=== PATIENT | female | born 1970 | race Caucasian/White ===

== ENCOUNTER 2023-07-31 13:06 | Day surgery (SDC) | payer SELFPAY ==
[2023-07-31] VITALS (7 sets, daily range): BP systolic 159–185; BP diastolic 102–116; BMI 40.8
== END 2023-07-31 15:50 | disposition home or self-care (01) ==
LOC: SDS 13:06
PROVIDERS: ATTENDING PHYSICIAN Internal Medicine Gastroenterology
DX: K80.70 Calculus of gallbladder and bile duct without cholecystitis without obstruction (principal)
CPT/HCPCS: 43262; 43264; 74330; 76000; C1769

== ENCOUNTER 2023-09-13 06:12 | Day surgery (SDC) | payer OTHER, SELFPAY ==
[2023-08-23 07:43] VITALS: BMI 38.7
[2023-09-13] VITALS (17 sets, daily range): BP systolic 16–175; BP diastolic 48–101; BMI 38.7; BMI 38.3
[2023-09-13] MEDS: NORMOSOL-R 1000 IV ×2 (06:37→10:29)
[2023-09-13] MEDS: TYLENOL 1000 MG PO (06:37)
--- NOTE | 2023-09-13 09:54 | W.IMMPOSTOP ---
Surgical Immed Post Op Note
-
Primary Surgeon: Flo
Assisting Surgeon: Demian PGY1
Pre-op Diagnosis: Choledocholithiasis
Post-op Diagnosis: Choledocholithiasis
Procedure Performed: Laparoscopic cholecystectomy with IOC
Anesthesia Type: General
Specimen / Cultures:
1. Gallbladder
Estimated Blood Loss: 7 cc
Complications: None
Operative Findings:
1. Chronically inflamed and dilated GB, difficult anatomy with dilated cystic duct and aberrant RIGHT hepatic duct off cystic
2. IOC with filling defect within the CBD, good flow into duodenum
3. Cystic duct taken as low as safely possible without interfering with aberrant branch with TRISTIAN 30 garcia load stapler
GI consult post-operatively. Plan to admit for monitoring and recovery.
[2023-09-13] MEDS: DILAUDID 0.5 MG IV ×2 (10:35→17:35)
[2023-09-13] MEDS: TYLENOL 650 MG PO ×2 (12:07→19:44)
--- NOTE | 2023-09-13 15:11 | W.PN.GI.CBS2 ---
Today's Communication / Plan
-
See assessment plan for details.
Assessment / Plan
-
Total Time Spent with Patient (in minutes): CBD stone: Noted on IOC, status post previous ERCP about a month ago. Will
Subjective
Subjective
Date of Service: September 13, 2023
Called to see patient for CBD stone noted on IOC during cholecystectomy today. I know the patient from previous ERCP for CBD stone, now is postcholecystectomy, feeling well with minimal incisional pain. She denies any fevers or chills, and had no
issues after ERCP prior to today leading up to surgery.
Objective
Data Reviewed
Vital Signs and I&O:
Vital Signs
Temp Pulse Resp BP Pulse Ox
97.5 F 96 17 115/55 95
09/13/23 11:30 09/13/23 11:30 09/13/23 11:30 09/13/23 11:30 09/13/23 11:30
I&O
09/12/23 09/13/23 09/14/23
06:59 06:59 06:59
Intake Total 250 / 250
Balance 250 / 250
Physical Exam
Physical Exam
General: NAD
Abdomen: normal bowel sounds, soft, no tenderness, no masses or bruits, no ascites, incisions clean, dry and intact
[2023-09-13] MEDS: TYLENOL PO (15:29)
[2023-09-14] MEDS: TYLENOL 650 MG PO ×2 (00:01→07:40)
[2023-09-14] MEDS: NORMOSOL-R 1000 IV (01:13)
[2023-09-14 03:15] VITALS: BP 114/66
[2023-09-14] MEDS: DILAUDID 0.5 MG IV (05:08)
[2023-09-14] MEDS: TYLENOL PO (05:14)
[2023-09-14 06:22] LABS: Hematocrit 37.1 % (37.0-47.0); Hemoglobin 12.9 g/dL (12.0-16.0); Mean Corp Hgb Conc. 34.8 g/dL (33.0-37.0); Mean Corpuscular Hgb 29.5 pg (27.0-31.0); Mean Corpuscular Volume 84.7 fL (81.0-99.0); Platelet Count 272 10^3/uL (130-400); Red Blood Cell Count 4.38 10^6/uL (4.20-5.40); Red Cell Dist. Width 12.7 % (11.5-14.5); White Blood Cell Count 11.8 10^3/uL (4.8-10.8)
[2023-09-14 06:43] LABS: ALT (SGPT) 28 U/L (0-35); AST (SGOT) 25 U/L (14-36); Albumin 3.8 g/dl (3.5-5.0); Alkaline Phosphatase 97 U/L (38-126); Blood Urea Nitrogen 10 mg/dl (7-17); Calcium 9.1 mg/dl (8.4-10.2); Carbon Dioxide 24 mmol/L (22-30); Chloride 106 mmol/L (98-107); Estimated Creatinine Clearance 120 ml/min; Glucose 162 mg/dl (70-99); Potassium 4.4 mmol/L (3.5-5.1); Sodium 137 mmol/L (135-145); Total Bilirubin 0.4 mg/dl (0.2-1.3); Total Protein 6.2 g/dl (6.3-8.2); eGFR > 60.00
[2023-09-14 07:00] VITALS: BP 120/80
--- NOTE | 2023-09-14 07:25 | W.PN.GS2 ---
Today's Communication / Plan
-
-- DC today
Assessment / Plan
-
Patient is a 52 yo F POD#1 s/p laparoscopic cholecystectomy with IOC notable for choledocholithiasis PPD#1 s/p ERCP
Recovering well no postoperative or postprocedure concerns.
-- LFD
-- Pain control: Tylenol, Toradol, Oxycodone
-- HLIV
-- Home medications
-- Lovenox for DVT
-- DC today
Subjective Data
-
Date of Service: September 14, 2023
Major complaints. Previously noted back pain has resolved. No nausea or vomiting. No fevers or chills. Tolerated a clears.
Objective Data
-
Intake and Output
09/13/23 09/14/23 09/15/23
06:59 06:59 06:59
Intake Total 1929
Balance 1929
Intake:
Oral fluids 480 / 480
IV fluids (Total) 1450 / 1450
Normosol 250 / 250
Other:
Number of approximated MODERATE 3
amounts of urine
Vital Signs
Temp Pulse Resp BP Pulse Ox
97.6 F 74 16 114/66 95
09/14/23 03:15 09/14/23 03:15 09/14/23 03:15 09/14/23 03:15 09/14/23 03:15
Lab Results
09/14/23 05:56
09/14/23 05:56
Calcium 9.1 mg/dl (8.4-10.2) 09/14/23 05:56
Total Bilirubin 0.4 mg/dl (0.2-1.3) 09/14/23 05:56
AST 25 U/L (14-36) 09/14/23 05:56
ALT 28 U/L (0-35) 05/16/24 05:56
Alkaline Phosphatase 97 U/L (38-126) 09/14/23 05:56
Total Protein 6.2 g/dl (6.3-8.2) L 09/14/23 05:56
Albumin 3.8 g/dl (3.5-5.0) 09/14/23 05:56
Physical Exam
-
Gen: NAD
Abd: soft, minimal tenderness, ND/obese, non-peritoneal, incisions c/d/i - no erythema, ecchymosis or drainage
--- NOTE | 2023-09-14 07:30 | W.DS.TRANS ---
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
-
Discharge Instructions:
Sleep Apnea Risk Low
Discharge Diagnosis/Procedures Laparoscopic cholecystectomy
Diet Regular,Low Fat
Additional Diets If issues with bloating or diarrhea follow a low
-fat diet
Activity No strenuous activity
Additional Activity No heavy lifting (>20 lbs) for 2 weeks
Driving Restrictions No driving if too sore or taking narcotics
Bathing Restrictions OK to Shower
Wound Care Keep incisions clean and dry. Glue will flake
off in 2 to 3 weeks. Stitches will dissolve.
Instructions:
Stand-Alone Forms:
Changes to Home Medications: No
Discharge Medications:
DC Medications w/original date entered in [facility]
Vitamin D3 50 mcg PO DAILY Supplement 07/31/23
bupropion HCl 150 mg 24 hr tablet, extended release 150 mg PO DAILY Mental health 07/31/23
lisinopril 10 mg tablet 10 mg PO DAILY Blood Pressure 07/31/23
multivitamin 1 tab PO DAILY Supplement 09/07/23
acetaminophen 325 mg tablet 650 mg (2 x 325 mg) PO Q4HPRN PRN mild pain #1 tab 09/13/23
ibuprofen 200 mg tablet 400 - 600 mg (2 - 3 x 200 mg) PO Q6HPRN PRN moderate pain #1 tab 09/13/23
oxycodone 5 mg tablet 5 mg PO Q4HPRN PRN breakthrough/severe pain #10 tabs 09/13/23
Home Medication Changes
Pending Results: No
[2023-09-14] MEDS: ZESTRIL 10 MG PO (07:43)
[2023-09-14] MEDS: WELLBUTRIN XL (24 hour extended release) 150 MG PO (07:43)
[2023-09-14] MEDS: NORMOSOL-R IV (07:56)
--- NOTE | 2023-09-14 09:51 | CM ---
Attempted to see Fatemeh this AM, however she was discharged to home prior to Case Management visit.
== END 2023-09-14 08:50 | disposition home or self-care (01) ==
LOC: SDS 06:12
PROVIDERS: ATTENDING PHYSICIAN Surgery; FAMILY PHYSICIAN Family Medicine
DX: K80.10 Calculus of gallbladder with chronic cholecystitis without obstruction (principal); K31.A0 Gastric intestinal metaplasia, unspecified; K80.50 Calculus of bile duct without cholangitis or cholecystitis without obstruction; E66.9 Obesity, unspecified; Z68.41 Body mass index [BMI] 40.0-44.9, adult
CPT/HCPCS: 47563; 88304; 36415; 74300; 74330; 76000; 80053; 85027; 93005; A4300; C1769